=== PATIENT | female | born 1945 | race Hispanic/Latino ===

== ENCOUNTER 2017-09-13 14:06 | Emergency (ER) | payer MEDICARE ==
--- NOTE | 2017-09-13 14:49 | RAD ---
THREE VIEWS OF THE LEFT ANKLE: Comparison: None. History: Left ankle pain and swelling that started yesterday. FINDINGS: Three views of the left ankle shows no evidence of acute fracture or dislocation. Moderate diffuse so ft tissue swelling is seen. No degenerative changes are seen. IMPRESSION: Soft tissue swelling without underlying osseous abnormality. POS: [facility]
--- NOTE | 2017-09-13 15:48 | ULT ---
LEFT LOWER EXTREMITY VENOUS ULTRASOUND: 09/13/17 HISTORY: Left ankle pain and edema. TECHNIQUE: Multiplanar snowden scale and color doppler images were obtained a left lower extremity venous ultrasoun d. Spectral analysis of the doppler waveforms were performed. FINDINGS: The left common femoral vein, profunda femoral vein, superficial femoral vein, and popliteal vein are normal in appearance without visible thrombus. These vessels demonstrate normal compression, flow an d augmentation. The posterior tibial vein and greater saphenous vein are also patent. IMPRESSION: No evidence of DVT. POS: [facility]
[2017-09-13 16:24] LABS: Anion Gap 12 mmol/L (10-20); BUN (Urea Nitrogen) 14 mg/dL (9.8-20.1); Calc. Creatinine Clearance 0 mL/min (70-130); Calcium 9.3 mg/dL (7.8-10.44); Carbon Dioxide 24 mmol/L (23-31); Chloride 104 mmol/L (98-107); Estimated GFR-MDRD 69; Glucose 106 mg/dL (83-110); Potassium 3.3 mmol/L (3.5-5.1); Sodium 137 mmol/L (136-145); Uric Acid 5.4 mg/dL (2.6-6.0)
== END 2017-09-13 16:42 | disposition home or self-care (01) ==
LOC: ERS 14:06
DX: M25.572 Pain in left ankle and joints of left foot (principal); E03.9 Hypothyroidism, unspecified; E78.5 Hyperlipidemia, unspecified; I10 Essential (primary) hypertension; Z79.899 Other long term (current) drug therapy
CPT/HCPCS: 36415; 80048; 84550